=== PATIENT | female | born 1995 | race African-American/Black ===

== ENCOUNTER 2016-10-10 19:36 | Emergency (ER) | payer BC ==
[~2016-10-10] VITALS: Ht 177.8 cm; Wt 88.5 kg
[~2016-10-10 19:36] MED LIST: ACYC800T PO; METF500T4 PO; METR500T PO; METR500T8 PO; VALA10005 PO; VALA500T PO
[2016-10-10 20:12] LABS: BILIRUBIN,URINE NEGATIVE (NEG); GLUCOSE,URINE >=1000 mg/dL (NEG); NITRITE,URINE NEGATIVE (NEG); PH,URINE 7.5; PROTEIN,URINE NEGATIVE (NEG-TRACE); UROBILINOGEN,URINE 0.2 mg/dL (0.2 mg/dL)
[2016-10-10 20:22] LABS: RBC,URINE 0 /HPF (0-2)
[2016-10-10 20:23] LABS: BACTERIA,URINE 0 /HPF (0-FEW); SQUAMOUS EPITHELIAL CELL,UR FEW /LPF
--- NOTE | 2016-10-10 20:33 | PHYS DOC ---
Past Medical History Past Medical History: Diabetes-Type I, Other Additional Past Medical Histor: Genital herpes, celiac disease, genital warts Past Surgical History: No Surgical History Additional Past Surgical Histo: insulin pump Alcohol Use: None Drug Use: None Adult General Chief Complaint Chief Complaint: PAIN ON URINATION HPI HPI Patient is a 21 year old female who presents with complaints of dysuria and also possible growth that concerns her for herpes. Patient denies any vaginal bleeding, vaginal discharge or flank pain or fevers. No sick contacts. No abdominal pain. Review of Systems Review of Systems Constitutional: Denies fever or chills [] Eyes: Denies change in visual acuity, redness, or eye pain [] HENT: Denies nasal congestion or sore throat [] Respiratory: Denies cough or shortness of breath [] Cardiovascular: No additional information not addressed in HPI [] GI: Denies abdominal pain, nausea, vomiting, bloody stools or diarrhea [] : Denies vaginal discharge or hematuria. yes 2 dysuria Musculoskeletal: Denies back pain or joint pain [] Integument: Denies rash. Possible skin lesion at left labia Neurologic: Denies headache, focal weakness or sensory changes [] Endocrine: Denies polyuria or polydipsia [] Allergies Allergies Allergies Coded Allergies Type Severity Reaction Last Updated Verified Penicillins Allergy Intermediate Rash 02/01/16 Yes Physical Exam Physical Exam Constitutional: Well developed, well nourished, no acute distress, non-toxic appearance. [] HENT: Normocephalic, atraumatic, bilateral external ears normal, normal, no discharge. [] Neck: Normal range of motion, no tenderness, supple, no stridor. No LAD, no meningeal signs Cardiovascular:Heart rate regular rhythm, no murmur [] Lungs & Thorax: Bilateral breath sounds clear to auscultation [] Abdomen: Bowel sounds normal, soft, no tenderness, no masses, no pulsatile masses. 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 Nonspecific skin growth on the left labia not consistent with herpes. No signs of cellulitis or abscess Skin: Warm, dry, no erythema, no rash. [] Back: No tenderness, no CVA tenderness. [] Extremities: No tenderness, no cyanosis, no clubbing, ROM intact, no edema. [] Neurologic: Alert and oriented X 3, normal motor function, no focal deficits noted. [] Psychologic: Affect normal, judgement normal, mood normal. [] Current Patient Data Vital Signs Vital Signs Date Time Temp Pulse Resp B/P (MAP) Pulse Ox O2 Delivery O2 Flow Rate FiO2 10/10/16 20:00 98.3 80 16 140/72 (94) 99 Room Air 98.3 Lab Values Laboratory Tests Test 10/10/16 19:54 Urine Collection Type Unknown Urine Color Yellow Urine Clarity Clear Urine pH 7.5 Urine Specific [place] 1.025 Urine Protein Negative mg/dL (NEG-TRACE) Urine Glucose (UA) >=1000 mg/dL (NEG) Urine Ketones (Stick) Negative mg/dL (NEG) Urine Blood Negative (NEG) Urine Nitrite Negative (NEG) Urine Bilirubin Negative (NEG) Urine Urobilinogen Dipstick 0.2 mg/dL (0.2 mg/dL) Urine Leukocyte Esterase Negative (NEG) Urine RBC 0 /HPF (0-2) Urine WBC 5-10 /HPF (0-4) Urine Squamous Epithelial Cells Few /LPF Urine Bacteria 0 /HPF (0-FEW) EKG EKG [] Radiology/Procedures Radiology/Procedures [] Course & Med Decision Making Course & Med Decision Making Pertinent Labs and Imaging studies reviewed. (See chart for details) Patient in no distress, in formed of lab results. Patient is to follow-up with her doctor as directed. [] Dragon Disclaimer Dragon Disclaimer This electronic medical record was generated, in whole or in part, using a voice recognition dictation system. Departure Departure Impression: Primary Impression: Dysuria during Disposition: HOME, SELF-CARE Condition: STABLE Referrals: UNKNOWN PCP NAME (PCP) Patient Instructions: Dysuria Additional Instructions: you told us you have a pcp and lpn medical assistant to f/u with. Please be rechecked in 3-5 days. Return to ED immediately if you experience abdominal pain, vaginal bleeding, vaginal discharge, flank pain, fevers or other concerning symptoms. Lori PERAZA MD Oct 10, 2016 20:33
[2016-10-10 21:08] VITALS: BP 135/73
== END 2016-10-10 21:31 | disposition home or self-care (01) ==
LOC: ER 19:36
DX: O26.891 Other specified pregnancy related conditions, first trimester (principal); O24.911 Unspecified diabetes mellitus in pregnancy, first trimester; R30.0 Dysuria; E10.9 Type 1 diabetes mellitus without complications; Z3A.00 Weeks of gestation of pregnancy not specified; Z88.0 Allergy status to penicillin; Z79.4 Long term (current) use of insulin
CPT/HCPCS: 81001; 87086; 99284